=== PATIENT | male | born 1945 | race African-American/Black ===

== ENCOUNTER 2023-12-29 09:20 | Observation (INO) | payer OTHER ==
[2023-12-29] MEDS ORDERED: TETRACAINE 0.5% OPHTH SOLN 2 ML BOTTLE ONE (09:38)
[2023-12-29] MEDS ORDERED: FLUORESCEIN NA 1 EA STRIP ONE (09:38)
[2023-12-29] MEDS ORDERED: FLUORESCEIN NA 1 EA STRIP OS ONE (09:42)
[2023-12-29 10:51] LABS: HEMATOCRIT 30.6 % (35.4-49); HEMOGLOBIN 10.4 G/dL (11.7-16.9); MCH 28.1 pg (25.7-33.7); MCHC 33.9 g/dl (32.0-35.9); MEAN CELL VOLUME 82.7 fl (80-96); MEAN PLT VOLUME 7.7 fl (7.5-11.1); PLATELET COUNT 217.4 10^3/uL (134-434); RDW 17.8 % (11.9-15.9); WHITE BLOOD COUNT 2.6 10^3/uL (4.0-10.8)
[2023-12-29 11:20] LABS: BILIRUBIN,TOTAL 0.6 mg/dl (0.2-1); CALCIUM 9.4 mg/dl (8.5-10.1); CREATININE 0.9 mg/dl (0.6-1.3); POTASSIUM 4.5 mmol/L (3.5-5.1); TOT PROT 6.6 g/dl (6.4-8.2)
[2023-12-29 11:32] LABS: ANISOCYTOSIS 1+; TARGET CELLS OCCASIONAL; TEAR DROP CELLS 1+
[2023-12-29 11:33] LABS: OVALOCYTE 1+
[2023-12-29] MEDS ORDERED: AMOX TR/POT CLAV 875MG/125MG TABLETS (FP) PO ONE (14:22)
[2023-12-29] MEDS ORDERED: AMOX TR/POT CLAV 875MG/125MG TABLETS (FP) ONE (14:27)
[2023-12-29 18:01] VITALS: BMI 21.4
[2023-12-29] MEDS: SODIUM CHLORIDE 1 GM TABLET PO SCH (22:23)
[2023-12-29] MEDS: MELATONIN 5 MG TABLETS PO SCH (22:23)
[2023-12-29] MEDS: TAMSULOSIN HCL 0.4 MG CAP PO SCH (22:23)
[2023-12-29] MEDS: SENNOSIDES 8.6MG TABLET (FP) PO SCH (22:23)
[2023-12-29 22:50] VITALS: RESP 18
[2023-12-30] MEDS: SODIUM CHLORIDE 1 GM TABLET PO SCH ×3 (05:42→21:00)
[2023-12-30] MEDS: AMOX TR/POT CLAV 875MG/125MG TABLETS (FP) PO SCH ×2 (08:26→17:35)
[2023-12-30] MEDS: TAMSULOSIN HCL 0.4 MG CAP PO SCH ×2 (08:26→21:00)
[2023-12-30] MEDS: metoPROLOL SUCCINATE 25 MG TAB.SR.24H (FP) PO SCH (09:06)
[2023-12-30] MEDS: ATORVASTATIN CA 40 MG TABLET (FP) PO SCH (09:06)
[2023-12-30] MEDS: ASCORBIC ACID 500 MG TABLET (FP) PO SCH (09:07)
[2023-12-30] MEDS: ASPIRIN COATED 81 MG TABLET.EC PO SCH (09:07)
[2023-12-30] MEDS: CYANOCOBALAMIN 1,000 MCG TABLET (FP) PO SCH (09:07)
[2023-12-30] MEDS: SENNOSIDES 8.6MG TABLET (FP) PO SCH ×2 (09:07→21:00)
[2023-12-30] MEDS: FERROUS SO4 325 MG TABLET (FP) PO SCH (09:07)
[2023-12-30 09:14] LABS: CALCIUM 9.7 mg/dl (8.5-10.1); CREATININE 0.8 mg/dl (0.6-1.3); POTASSIUM 4.9 mmol/L (3.5-5.1)
[2023-12-30 09:24] LABS: BASO % 1.2 % (0-2.0); EOS % 4.5 % (0-4.5); HEMATOCRIT 34.2 % (35.4-49); HEMOGLOBIN 11.7 GM/dL (11.7-16.9); LYMPH % 47.7 % (8-40); MCH 27.8 pg (25.7-33.7); MCHC 34.3 g/dl (32.0-35.9); MEAN PLT VOLUME 7.6 fl (7.5-11.1); MONO % 11.5 % (3.8-10.2); NEUT % 35.1 % (42.8-82.8); PLATELET COUNT 264 10^3/uL (134-434); RBC 4.22 M/mm3 (4.00-5.60); RDW 16.7 % (11.9-15.9); WHITE BLOOD COUNT 2.8 K/mm3 (4.0-10.0)
[2023-12-30] MEDS ORDERED: PATIENT'S OWN MEDICATION (NON-FORMULARY) (Finasteride [Finasteride] 1 MG Tablet) PO SCH (10:00)
[2023-12-30] MEDS: FINASTERIDE 5 MG TABLET (FP) PO SCH (15:16)
[2023-12-30] MEDS: MELATONIN 5 MG TABLETS PO SCH (21:00)
[2023-12-30] MEDS ORDERED: LATANOPROST 0.005% OPHTH SOLN 2.5ML BOTTLE OD SCH (22:00)
[2023-12-31] MEDS: SODIUM CHLORIDE 1 GM TABLET PO SCH ×2 (05:45→15:17)
[2023-12-31] MEDS: AMOX TR/POT CLAV 875MG/125MG TABLETS (FP) PO SCH (08:11)
[2023-12-31] MEDS: TAMSULOSIN HCL 0.4 MG CAP PO SCH (08:11)
[2023-12-31] MEDS: ASCORBIC ACID 500 MG TABLET (FP) PO SCH (09:20)
[2023-12-31] MEDS: metoPROLOL SUCCINATE 25 MG TAB.SR.24H (FP) PO SCH (09:20)
[2023-12-31] MEDS: FERROUS SO4 325 MG TABLET (FP) PO SCH (09:20)
[2023-12-31] MEDS: FINASTERIDE 5 MG TABLET (FP) PO SCH (09:20)
[2023-12-31] MEDS: SENNOSIDES 8.6MG TABLET (FP) PO SCH (09:20)
[2023-12-31] MEDS: ASPIRIN COATED 81 MG TABLET.EC PO SCH (09:20)
[2023-12-31] MEDS: ATORVASTATIN CA 40 MG TABLET (FP) PO SCH (09:21)
[2023-12-31] MEDS: CYANOCOBALAMIN 1,000 MCG TABLET (FP) PO SCH (09:21)
[2023-12-31 14:33] VITALS: BP 128/76; PULSE 86; TEMP 98.7
== END 2023-12-31 15:23 | disposition home or self-care (01) ==
LOC: FER 09:20 → FM/S 15:03
PROVIDERS: ADMIT Internal Medicine
DX: H02.846 Edema of left eye, unspecified eyelid (principal); L03.818 Cellulitis of other sites; F81.89 Other developmental disorders of scholastic skills; I12.9 Hypertensive chronic kidney disease with stage 1 through stage 4 chronic kidney disease, or unspecified chronic kidney disease; N18.9 Chronic kidney disease, unspecified; N40.0 Benign prostatic hyperplasia without lower urinary tract symptoms; E87.1 Hypo-osmolality and hyponatremia; H40.9 Unspecified glaucoma
CPT/HCPCS: 36415; 70486-TC; 80048; 80053; 82436; 83930; 83935; 84133; 84300; 84484; 85025; 85027; 93005; 99285-25; G0378

== ENCOUNTER 2024-06-01 16:03 | Emergency (ER) | payer OTHER ==
[2024-06-01 16:23] VITALS: BP 118/79; PULSE 67; RESP 18; TEMP 98.3; BMI 27.3
[2024-06-01] MEDS ORDERED: LACTULOSE 20 GM/30 ML UDC (FOR ORAL USE ONLY) ONE (16:43)
[2024-06-01] MEDS ORDERED: MAGNESIUM CITRATE 300 ML BOTTLE ONE (16:43)
[2024-06-01] MEDS: LACTULOSE 20 GM/30 ML UDC (FOR ORAL USE ONLY) PO ONE (16:47)
[2024-06-01] MEDS: MAGNESIUM CITRATE 300 ML BOTTLE PO ONE (16:50)
== END 2024-06-01 18:35 | disposition home or self-care (01) ==
LOC: FER 16:03
DX: K59.00 Constipation, unspecified (principal)
CPT/HCPCS: 99283-25

== ENCOUNTER 2024-09-30 09:57 | Emergency (ER) | payer OTHER ==
[2024-09-30 10:05] VITALS: RESP 18; TEMP 98.1; BMI 22.1
[2024-09-30 11:00] LABS: ALBUMIN 4.2 g/dl (3.4-5.0); BILIRUBIN,TOTAL 0.2 mg/dl (0.2-1); CALCIUM 9.6 mg/dl (8.5-10.1); POTASSIUM 4.2 mmol/L (3.5-5.1); TOT PROT 6.6 g/dl (6.4-8.2)
[2024-09-30 13:27] LABS: HEMATOCRIT 29.4 % (35.4-49); HEMOGLOBIN 9.7 G/dL (11.7-16.9); MCH 28.8 pg (25.7-33.7); MCHC 32.9 g/dl (32.0-35.9); MEAN CELL VOLUME 87.8 fl (80-96); PLATELET COUNT 227.1 10^3/uL (134-434); RBC 3.35 10^6/uL (4.00-5.60); RDW 14.9 % (11.9-15.9); WHITE BLOOD COUNT 2.9 10^3/uL (4.0-10.8)
[2024-09-30 14:08] LABS: PLATELET ESTIMATE ADEQUATE
[2024-09-30 14:12] VITALS: BP 109/56; PULSE 65
== END 2024-09-30 14:13 | disposition home or self-care (01) ==
LOC: FER 09:57
DX: S00.01XA Abrasion of scalp, initial encounter (principal); E87.1 Hypo-osmolality and hyponatremia; X58.XXXA Exposure to other specified factors, initial encounter
CPT/HCPCS: 36415; 70450-TC; 72125-TC; 80053; 85027; 93005; 99285-25

== ENCOUNTER 2024-10-05 14:22 | Emergency (ER) | payer OTHER ==
[2024-10-05 14:36] VITALS: RESP 18; TEMP 97.4; BMI 22.1
[2024-10-05 16:17] LABS: HEMOGLOBIN 11.1 G/dL (11.7-16.9); MCH 29.2 pg (25.7-33.7); MCHC 32.8 g/dl (32.0-35.9); MEAN PLT VOLUME 7.6 fl (7.5-11.1); PLATELET COUNT 239.4 10^3/uL (134-434); RBC 3.82 10^6/uL (4.00-5.60); RDW 14.2 % (11.9-15.9)
[2024-10-05 17:17] LABS: ALBUMIN 5.1 g/dl (3.4-5.0); BILIRUBIN,TOTAL 0.3 mg/dl (0.2-1); CALCIUM 10.6 mg/dl (8.5-10.1); CREATININE 0.9 mg/dl (0.6-1.3); POTASSIUM 4.8 mmol/L (3.5-5.1); TOT PROT 8.2 g/dl (6.4-8.2)
[2024-10-05 17:42] VITALS: BP 137/89; PULSE 86
[2024-10-05 19:02] LABS: OVALOCYTE 2+; PLATELET ESTIMATE ADEQUATE; TARGET CELLS 2+
== END 2024-10-05 17:45 | disposition home or self-care (01) ==
LOC: FER 14:22
DX: I10 Essential (primary) hypertension (principal)
CPT/HCPCS: 36415; 80053; 81003; 81015; 84484; 85027; 93005; 99284-25

== ENCOUNTER 2024-10-15 17:29 | Inpatient (IN) | payer OTHER ==
[2024-10-15 18:54] VITALS: BMI 22.1
[2024-10-15 18:58] LABS: HEMATOCRIT 29.6 % (35.4-49); MCH 29.9 pg (25.7-33.7); MCHC 33.7 g/dl (32.0-35.9); MEAN CELL VOLUME 88.5 fl (80-96); MEAN PLT VOLUME 7.9 fl (7.5-11.1); PLATELET COUNT 253.1 10^3/uL (134-434); RBC 3.34 10^6/uL (4.00-5.60); RDW 14.8 % (11.9-15.9)
[2024-10-15 19:12] LABS: ALBUMIN 4.2 g/dl (3.4-5.0); BILIRUBIN,TOTAL 0.2 mg/dl (0.2-1); CALCIUM 9.8 mg/dl (8.5-10.1); POTASSIUM 4.3 mmol/L (3.5-5.1); TOT PROT 6.2 g/dl (6.4-8.2)
[2024-10-15 19:31] LABS: PLATELET ESTIMATE ADEQUATE
[2024-10-15] MEDS: SODIUM CHLORIDE 0.9% 1000 ML INFUS.BAG IV ONE (22:32)
[2024-10-16] MEDS: SODIUM CHLORIDE 1 GM TABLET PO SCH (06:39)
[2024-10-16] MEDS: GABAPENTIN 300 MG CAPSULE PO SCH (06:39)
[2024-10-16] MEDS: metFORMIN HCL 500 MG TABLET (FP) PO SCH (06:39)
[2024-10-16 08:41] LABS: HEMATOCRIT 30.4 % (35.4-49); HEMOGLOBIN 9.9 G/dL (11.7-16.9); MCH 28.6 pg (25.7-33.7); MCHC 32.5 g/dl (32.0-35.9); MEAN CELL VOLUME 87.9 fl (80-96); PLATELET COUNT 255.7 10^3/uL (134-434); RBC 3.46 10^6/uL (4.00-5.60); RDW 14.9 % (11.9-15.9); WHITE BLOOD COUNT 2.9 10^3/uL (4.0-10.8)
[2024-10-16 09:27] LABS: CALCIUM 9.7 mg/dl (8.5-10.1); CREATININE 0.8 mg/dl (0.6-1.3); POTASSIUM 4.4 mmol/L (3.5-5.1)
[2024-10-16] MEDS: SENNOSIDES 8.6MG TABLET (FP) PO SCH (10:19)
[2024-10-16] MEDS: TAMSULOSIN HCL 0.4 MG CAP PO SCH (10:19)
[2024-10-16] MEDS: ASPIRIN COATED 81 MG TABLET.EC PO SCH (10:19)
[2024-10-16] MEDS: metoPROLOL SUCCINATE 25 MG TAB.SR.24H (FP) PO SCH (10:20)
[2024-10-16] MEDS: DULoxetine HCL 30 MG CAPSULE.DR PO SCH (10:20)
[2024-10-16] MEDS: FINASTERIDE 5 MG TABLET (FP) PO SCH (10:20)
[2024-10-16] MEDS: INSULIN ASPART SLIDING SCALE (NOVOLOG) 1 VIAL SQ SCH (11:25)
[2024-10-16 12:29] LABS: PLATELET ESTIMATE ADEQUATE
[2024-10-16] MEDS: ATORVASTATIN CA 40 MG TABLET (FP) PO SCH (21:08)
[2024-10-17 10:30] LABS: ALBUMIN 4.3 g/dl (3.4-5.0); BILIRUBIN,TOTAL 0.3 mg/dl (0.2-1); CREATININE 0.9 mg/dl (0.6-1.3); POTASSIUM 4.7 mmol/L (3.5-5.1); TOT PROT 6.9 g/dl (6.4-8.2)
[2024-10-17 10:59] LABS: BASO % 1.3 % (0-2.0); HEMATOCRIT 30.7 % (35.4-49); HEMOGLOBIN 10.3 GM/dL (11.7-16.9); LYMPH % 42.2 % (8-40); MCH 28.7 pg (25.7-33.7); MCHC 33.7 g/dl (32.0-35.9); MEAN CELL VOLUME 85.2 fl (80-96); MEAN PLT VOLUME 7.7 fl (7.5-11.1); MONO % 13.2 % (3.8-10.2); NEUT % 35.3 % (42.8-82.8); PLATELET COUNT 271 10^3/uL (134-434); RDW 13.8 % (11.9-15.9); WHITE BLOOD COUNT 3.4 K/mm3 (4.0-10.0)
[2024-10-17] MEDS: ENOXAPARIN NA (PORCINE) 40 MG/0.4 ML DISP.SYRIN SQ SCH (11:23)
[2024-10-17] MEDS: amLODIPine BESYLATE 2.5 MG TABLET (FP) PO ONE (16:05)
[2024-10-18 08:36] LABS: HEMATOCRIT 33.3 % (35.4-49); MCH 28.8 pg (25.7-33.7); MCHC 32.9 g/dl (32.0-35.9); MEAN CELL VOLUME 87.5 fl (80-96); MEAN PLT VOLUME 7.9 fl (7.5-11.1); PLATELET COUNT 260.2 10^3/uL (134-434); RBC 3.81 10^6/uL (4.00-5.60); RDW 14.6 % (11.9-15.9); WHITE BLOOD COUNT 3.9 10^3/uL (4.0-10.8)
[2024-10-18 09:44] LABS: CALCIUM 9.7 mg/dl (8.5-10.1); CREATININE 0.9 mg/dl (0.6-1.3); POTASSIUM 4.6 mmol/L (3.5-5.1)
[2024-10-18] MEDS: amLODIPine BESYLATE 5 MG TABLET (FP) PO SCH (11:37)
[2024-10-18] MEDS: PHENYTOIN 100 MG/4 ML U-D CUP PO SCH (14:56)
[2024-10-19] MEDS: amLODIPine BESYLATE 2.5 MG TABLET (FP) PO SCH (09:08)
[2024-10-20 11:21] VITALS: RESP 18
[2024-10-21 14:13] VITALS: BP 124/77; PULSE 65; TEMP 98.1
== END 2024-10-21 16:45 | DRG 918 ==
LOC: FER 17:29 → FM/S 23:23 → OBSVTOIN 10-16 12:59
PROVIDERS: ADMIT Internal Medicine
DX: T42.0X1A Poisoning by hydantoin derivatives, accidental (unintentional), initial encounter (principal); G40.909 Epilepsy, unspecified, not intractable, without status epilepticus; F03.90 Unspecified dementia, unspecified severity, without behavioral disturbance, psychotic disturbance, mood disturbance, and anxiety; E11.9 Type 2 diabetes mellitus without complications; D64.9 Anemia, unspecified; N40.0 Benign prostatic hyperplasia without lower urinary tract symptoms; R41.0 Disorientation, unspecified; R53.83 Other fatigue; R53.1 Weakness; M48.00 Spinal stenosis, site unspecified; I12.9 Hypertensive chronic kidney disease with stage 1 through stage 4 chronic kidney disease, or unspecified chronic kidney disease; N18.9 Chronic kidney disease, unspecified; E78.5 Hyperlipidemia, unspecified; H40.9 Unspecified glaucoma; R29.6 Repeated falls; R27.0 Ataxia, unspecified; Y92.89 Other specified places as the place of occurrence of the external cause
CPT/HCPCS: 0241U-QW; 36415; 70450-TC; 71045-TC-FY; 80048; 80053; 80185; 81003; 81015; 82962; 84484; 85025; 85027; 87086; 87635; 93005; 97116-GP; 97162-GP; 99285-25; G0378

== ENCOUNTER 2024-12-04 12:38 | Emergency (ER) | payer OTHER ==
[2024-12-04 13:38] VITALS: BP 143/86; PULSE 73; RESP 18; TEMP 97.3; BMI 22.1
[2024-12-04] MEDS ORDERED: LIDOCAINE HCL 2% (20ML MULTI-DOSE VIAL) ONE (16:32)
== END 2024-12-04 17:45 | disposition home or self-care (01) ==
LOC: FER 12:38
DX: H61.121 Hematoma of pinna, right ear (principal); H92.01 Otalgia, right ear
CPT/HCPCS: 99283-25

== ENCOUNTER 2024-12-06 11:20 | Emergency (ER) | payer OTHER ==
[2024-12-06 11:29] VITALS: TEMP 98.5; BMI 22.1
[2024-12-06 12:38] VITALS: BP 120/100; PULSE 90; RESP 15
[2024-12-06] MEDS ORDERED: DIPHTH,PERTUSS(ACELL),TET 0.5 ML DISP.SYRIN IM ONE (13:11)
== END 2024-12-06 13:08 | disposition home or self-care (01) ==
LOC: FER 11:20
DX: H61.121 Hematoma of pinna, right ear (principal); Z48.01 Encounter for change or removal of surgical wound dressing
CPT/HCPCS: 82962; 99283-25

== ENCOUNTER 2025-01-20 11:16 | Inpatient (IN) | payer OTHER ==
[2025-01-20 12:36] LABS: HEMATOCRIT 31.2 % (35.4-49); HEMOGLOBIN 10.6 G/dL (11.7-16.9); MCH 30.3 pg (25.7-33.7); MCHC 33.8 g/dl (32.0-35.9); MEAN CELL VOLUME 89.7 fl (80-96); RBC 3.48 10^6/uL (4.00-5.60); RDW 15.3 % (11.9-15.9); WHITE BLOOD COUNT 2.6 10^3/uL (4.0-10.8)
[2025-01-20 12:38] LABS: INR 1.07 (0.83-1.09); PROTHROMBIN TIME (PATIENT) 12.2 SEC (9.7-13.0)
[2025-01-20 12:41] LABS: ACTIVATED PTT 38.7 SECONDS (25.2-36.5)
[2025-01-20 12:47] LABS: ALBUMIN 4.3 g/dl (3.4-5.0); ALK PHOS 170 U/L (45-117); ANION GAP 6 mmol/L (4-13); BILIRUBIN,TOTAL 0.2 mg/dl (0.2-1); CALCIUM 10.2 mg/dl (8.5-10.1); CHLORIDE 94 mmol/L (98-107); CO2 31 mmol/L (21-32); CREATININE 0.7 mg/dl (0.6-1.3); GLUCOSE,RANDOM 96 mg/dl (74-106); POTASSIUM 4.2 mmol/L (3.5-5.1); SGOT/AST 16 U/L (15-37); SGPT/ALT 15 U/L (7-52); SODIUM 131 mmol/L (136-145); TOT PROT 6.9 g/dl (6.4-8.2)
[2025-01-20 13:00] LABS: PLATELET ESTIMATE ADEQUATE
[2025-01-20] MEDS: INSULIN ASPART SLIDING SCALE (NOVOLOG) 1 VIAL SQ SCH (19:26)
[2025-01-20] MEDS: DEXTROSE 5%-NORMAL SALINE 1,000 ML IV SCH (21:30)
[2025-01-20] MEDS: TAMSULOSIN HCL 0.4 MG CAP PO SCH (21:45)
[2025-01-20] MEDS: PHENYTOIN 100 MG/4 ML U-D CUP PO SCH (21:45)
[2025-01-20] MEDS: MUPIROCIN 2% TOPICAL OINTMENT FOR DECOLONIZATION NS SCH (21:45)
[2025-01-20] MEDS: POLYETHYLENE GLYCOL (HEALTHYLAX) 3350 17 GM PACKET PO SCH (21:45)
[2025-01-20] MEDS: GABAPENTIN 300 MG CAPSULE PO SCH (21:46)
[2025-01-20] MEDS: CHLORHEXIDINE GLUCONATE 4% CLEANSER FOR DECOLONIZATION TP SCH (21:46)
[2025-01-20] MEDS: SENNOSIDES 8.6MG TABLET (FP) PO SCH (21:46)
[2025-01-20] MEDS: MELATONIN 5 MG TABLETS PO SCH (21:46)
[2025-01-21 06:54] LABS: BASO % 1.2 % (0-2.0); HEMATOCRIT 26.9 % (35.4-49); HEMOGLOBIN 8.9 GM/dL (11.7-16.9); MCH 28.7 pg (25.7-33.7); MEAN PLT VOLUME 7.4 fl (7.5-11.1); MONO % 13.6 % (3.8-10.2); NEUT % 55.2 % (42.8-82.8); PLATELET COUNT 327 10^3/uL (134-434); RBC 3.09 M/mm3 (4.00-5.60); RDW 14.1 % (11.9-15.9)
[2025-01-21 07:15] LABS: POTASSIUM 4.4 mmol/L (3.5-5.1)
[2025-01-21 07:19] LABS: CALCIUM 9.1 mg/dL (8.5-10.1)
[2025-01-21 07:20] LABS: ALBUMIN 3.2 g/dl (3.4-5.0); BLOOD UREA NITROGEN 20.1 mg/dL (7-18); MAGNESIUM 1.2 mg/dL (1.8-2.4)
[2025-01-21 07:23] LABS: CREATININE 0.8 mg/dL (0.55-1.3); PHOSPHOROUS 2.4 mg/dL (2.5-4.9)
[2025-01-21 07:24] LABS: BILIRUBIN,TOTAL 0.2 mg/dL (0.2-1); TOT PROT 6.2 g/dl (6.4-8.2)
[2025-01-21] MEDS: DULoxetine HCL 30 MG CAPSULE.DR PO SCH (09:08)
[2025-01-21] MEDS: MAGNESIUM 2GM/50ML STERILE WATER IVPB IVPB ONE (09:08)
[2025-01-21] MEDS: FINASTERIDE 5 MG TABLET (FP) PO SCH (09:09)
[2025-01-21] MEDS: amLODIPine BESYLATE 2.5 MG TABLET (FP) PO ONE (09:12)
[2025-01-21] MEDS: SODIUM PHOSPHATE - 15 MM in SODIUM CHLORIDE 250 ML IVPB ONE (10:19)
[2025-01-21 10:25] LABS: INR 1.13 (0.83-1.09); PROTHROMBIN TIME (PATIENT) 12.3 SEC (9.7-13.0)
[2025-01-21 10:28] LABS: ACTIVATED PTT 35.3 SECONDS (25.2-36.5)
[2025-01-22] MEDS ORDERED: ATROPINE SULFATE 1 MG/10 ML DISP.SYRIN IVPUSH PRN (05:49)
[2025-01-22 07:50] LABS: PH,URINE 5.5 (5.0-8.0); URINE APPEARANCE CLEAR; URINE BILIRUBIN NEGATIVE (NEGATIVE); URINE COLOR YELLOW; URINE GLUCOSE (UA) NEGATIVE (NEGATIVE); URINE KETONE NEGATIVE (NEGATIVE); URINE NITRITE NEGATIVE (NEGATIVE); URINE PROTEIN TRACE (NEGATIVE); URINE UROBILINOGEN 0.2 mg/dL (0.2-1.0)
[2025-01-22 07:51] LABS: URINE LEUK ESTERASE NEGATIVE (NEGATIVE)
[2025-01-22 08:01] LABS: BASO % 1.3 % (0-2.0); EOS % 8.5 % (0-4.5); HEMATOCRIT 26.4 % (35.4-49); MCH 29.4 pg (25.7-33.7); MEAN CELL VOLUME 86.5 fl (80-96); MEAN PLT VOLUME 7.3 fl (7.5-11.1); NEUT % 40.2 % (42.8-82.8); PLATELET COUNT 274 10^3/uL (134-434); RBC 3.05 M/mm3 (4.00-5.60); RDW 14.1 % (11.9-15.9); WHITE BLOOD COUNT 2.3 K/mm3 (4.0-10.0)
[2025-01-22 08:17] LABS: POTASSIUM 3.9 mmol/L (3.5-5.1)
[2025-01-22 08:19] LABS: BLOOD UREA NITROGEN 15.3 mg/dL (7-18); CALCIUM 9.1 mg/dL (8.5-10.1)
[2025-01-22 08:22] LABS: CREATININE 0.7 mg/dL (0.55-1.3)
[2025-01-22 08:24] LABS: BILIRUBIN,TOTAL 0.2 mg/dL (0.2-1); TOT PROT 6.1 g/dl (6.4-8.2)
[2025-01-22] MEDS: INSULIN ASPART SLIDING SCALE (NOVOLOG) 1 VIAL SQ SCH (18:00)
[2025-01-23 06:37] LABS: BASO % 0.2 % (0-2.0); EOS % 0.4 % (0-4.5); HEMOGLOBIN 9.7 GM/dL (11.7-16.9); LYMPH % 6.2 % (8-40); MCHC 33.4 g/dl (32.0-35.9); MEAN PLT VOLUME 7.1 fl (7.5-11.1); MONO % 7.9 % (3.8-10.2); NEUT % 85.3 % (42.8-82.8); PLATELET COUNT 295 10^3/uL (134-434); RBC 3.33 M/mm3 (4.00-5.60); RDW 13.7 % (11.9-15.9); WHITE BLOOD COUNT 8.5 K/mm3 (4.0-10.0)
[2025-01-23 06:55] LABS: POTASSIUM 4.2 mmol/L (3.5-5.1)
[2025-01-23 06:59] LABS: ALBUMIN 3.2 g/dl (3.4-5.0); CALCIUM 9.3 mg/dL (8.5-10.1)
[2025-01-23 07:00] LABS: BLOOD UREA NITROGEN 10.7 mg/dL (7-18); MAGNESIUM 1.4 mg/dL (1.8-2.4)
[2025-01-23 07:03] LABS: CREATININE 0.7 mg/dL (0.55-1.3); PHOSPHOROUS 2.4 mg/dL (2.5-4.9)
[2025-01-23 07:04] LABS: BILIRUBIN,TOTAL 0.2 mg/dL (0.2-1); TOT PROT 6.6 g/dl (6.4-8.2)
[2025-01-23] MEDS: MAGNESIUM SULFATE IN WATER 2 GM/50 ML IVPB IVPB ONE (08:59)
[2025-01-24 06:46] LABS: POTASSIUM 4.1 mmol/L (3.5-5.1)
[2025-01-24 06:50] LABS: ALBUMIN 3.1 g/dl (3.4-5.0); CALCIUM 9.2 mg/dL (8.5-10.1)
[2025-01-24 06:51] LABS: MAGNESIUM 1.6 mg/dL (1.8-2.4)
[2025-01-24 06:54] LABS: CREATININE 0.6 mg/dL (0.55-1.3); PHOSPHOROUS 2.8 mg/dL (2.5-4.9)
[2025-01-24 06:55] LABS: BILIRUBIN,TOTAL 0.2 mg/dL (0.2-1); TOT PROT 6.4 g/dl (6.4-8.2)
[2025-01-24 07:17] LABS: BASO % 0.3 % (0-2.0); HEMATOCRIT 26.7 % (35.4-49); HEMOGLOBIN 9.2 GM/dL (11.7-16.9); LYMPH % 12.2 % (8-40); MCH 29.4 pg (25.7-33.7); MCHC 34.5 g/dl (32.0-35.9); MEAN CELL VOLUME 85.3 fl (80-96); MEAN PLT VOLUME 7.5 fl (7.5-11.1); MONO % 7.2 % (3.8-10.2); NEUT % 76.3 % (42.8-82.8); PLATELET COUNT 268 10^3/uL (134-434); RBC 3.13 M/mm3 (4.00-5.60); RDW 13.7 % (11.9-15.9); WHITE BLOOD COUNT 6.1 K/mm3 (4.0-10.0)
[2025-01-24] MEDS: amLODIPine BESYLATE 5 MG TABLET (FP) PO SCH (13:08)
[2025-01-24 16:10] VITALS: BMI 25.4
[2025-01-24] MEDS ORDERED: LABETALOL HCL 20 MG/4 ML VIAL IVPUSH ONE (18:20)
[2025-01-24] MEDS: amLODIPine BESYLATE 5 MG TABLET (FP) PO ONE (21:13)
[2025-01-25] MEDS ORDERED: VANCOMYCIN 1,000 MG VIAL (RESTRICTED TO ID ONLY) ONE (07:09)
[2025-01-25] MEDS ORDERED: PROPOFOL 20 ML ONE (07:15)
[2025-01-25] MEDS ORDERED: ROCURONIUM BROMIDE 50 MG/5 ML SYRINGE ONE (07:16)
[2025-01-25] MEDS ORDERED: LIDOCAINE HCL/PF 2% SDV 5ML VIAL ONE (07:16)
[2025-01-25] MEDS ORDERED: LIDOCAINE 1%/EPI 1:100000 (20 ML MULTI DOSE VIAL) ONE (07:18)
[2025-01-25] MEDS: amLODIPine BESYLATE 5 MG TABLET (FP) PO SCH (09:19)
[2025-01-25] MEDS: DEXTROSE 5%-NORMAL SALINE 1,000 ML IV SCH (10:41)
[2025-01-25] MEDS: SODIUM CHLORIDE 1 GM TABLET PO SCH (21:16)
[2025-01-26 08:33] LABS: HEMATOCRIT 31.5 % (35.4-49); HEMOGLOBIN 10.9 GM/dL (11.7-16.9); MCH 29.6 pg (25.7-33.7); MCHC 34.8 g/dl (32.0-35.9); MEAN CELL VOLUME 85.2 fl (80-96); MEAN PLT VOLUME 7.6 fl (7.5-11.1); PLATELET COUNT 301 10^3/uL (134-434); RBC 3.69 M/mm3 (4.00-5.60); RDW 14.1 % (11.9-15.9); WHITE BLOOD COUNT 3.4 K/mm3 (4.0-10.0)
[2025-01-26 08:46] LABS: POTASSIUM 4.3 mmol/L (3.5-5.1)
[2025-01-26 08:54] LABS: BLOOD UREA NITROGEN 15.6 mg/dL (7-18)
[2025-01-26 08:55] LABS: CALCIUM 9.8 mg/dL (8.5-10.1); MAGNESIUM 1.6 mg/dL (1.8-2.4)
[2025-01-26 08:58] LABS: CREATININE 0.7 mg/dL (0.55-1.3); PHOSPHOROUS 2.7 mg/dL (2.5-4.9)
[2025-01-26] MEDS: MAGNESIUM 2GM/50ML STERILE WATER IVPB IVPB ONE (22:53)
[2025-01-27 07:15] LABS: HEMATOCRIT 33.5 % (35.4-49); HEMOGLOBIN 11.2 GM/dL (11.7-16.9); MCH 28.7 pg (25.7-33.7); MCHC 33.4 g/dl (32.0-35.9); MEAN CELL VOLUME 85.9 fl (80-96); MEAN PLT VOLUME 7.1 fl (7.5-11.1); PLATELET COUNT 329 10^3/uL (134-434); WHITE BLOOD COUNT 2.7 K/mm3 (4.0-10.0)
[2025-01-27 07:36] LABS: BLOOD UREA NITROGEN 12.9 mg/dL (7-18)
[2025-01-27 07:38] LABS: CALCIUM 9.6 mg/dL (8.5-10.1)
[2025-01-27 07:39] LABS: CREATININE 0.7 mg/dL (0.55-1.3); MAGNESIUM 1.8 mg/dL (1.8-2.4); PHOSPHOROUS 2.7 mg/dL (2.5-4.9)
[2025-01-27] MEDS: LABETALOL HCL 20 MG/4 ML VIAL IVPUSH ONE (15:10)
[2025-01-27] MEDS: DOXAZOSIN MESYLATE 1 MG TABLET PO SCH (22:30)
[2025-01-28] MEDS: amLODIPine BESYLATE 10 MG TABLET (FP) PO SCH (09:46)
[2025-01-28] MEDS: LABETALOL HCL 20 MG/4 ML VIAL IVPUSH SCH ×2 (15:22→20:44)
[2025-01-28] MEDS ORDERED: levETIRAcetam 500 MG/5 ML INJECTION VIAL IVPB ONE (17:14)
[2025-01-28] MEDS: levETIRAcetam 500 MG/5 ML INJECTION VIAL IVPB ONE (17:23)
[2025-01-28] MEDS ORDERED: PHENYTOIN SODIUM 250 MG/5 ML VIAL IVPB SCH (17:30)
[2025-01-28] MEDS: FOSPHENYTOIN SODIUM 100 MG in SODIUM CHLORIDE 100 ML IVPB SCH (19:43)
[2025-01-28] MEDS: CEFAZOLIN 2 GM/D5W 2 GM/50 ML ML IVPB SCH (21:21)
[2025-01-28] MEDS: MUPIROCIN 2% TOPICAL OINTMENT FOR DECOLONIZATION NS SCH (21:21)
[2025-01-28] MEDS: CHLORHEXIDINE GLUCONATE 4% CLEANSER FOR DECOLONIZATION TP SCH (21:22)
[2025-01-28 21:54] LABS: BASO % 0.5 % (0-2.0); EOS % 1.8 % (0-4.5); HEMATOCRIT 30.8 % (35.4-49); HEMOGLOBIN 10.4 GM/dL (11.7-16.9); LYMPH % 15.9 % (8-40); MCH 28.9 pg (25.7-33.7); MCHC 33.9 g/dl (32.0-35.9); MEAN CELL VOLUME 85.2 fl (80-96); MONO % 14.7 % (3.8-10.2); NEUT % 67.1 % (42.8-82.8); RBC 3.61 M/mm3 (4.00-5.60); WHITE BLOOD COUNT 3.4 K/mm3 (4.0-10.0)
[2025-01-28 22:11] LABS: POTASSIUM 4.9 mmol/L (3.5-5.1)
[2025-01-28 22:14] LABS: ALBUMIN 2.9 g/dl (3.4-5.0); BLOOD UREA NITROGEN 18.9 mg/dL (7-18); MAGNESIUM 1.6 mg/dL (1.8-2.4)
[2025-01-28 22:17] LABS: CREATININE 0.9 mg/dL (0.55-1.3); PHOSPHOROUS 2.8 mg/dL (2.5-4.9)
[2025-01-28 22:18] LABS: BILIRUBIN,TOTAL 0.1 mg/dL (0.2-1); TOT PROT 6.6 g/dl (6.4-8.2)
[2025-01-28 22:20] LABS: MEAN PLT VOLUME 7.1 fl (7.5-11.1); PLATELET COUNT 218 10^3/uL (134-434)
[2025-01-29 07:31] LABS: BASO % 0.8 % (0-2.0); EOS % 3.4 % (0-4.5); HEMATOCRIT 32.4 % (35.4-49); HEMOGLOBIN 10.9 GM/dL (11.7-16.9); LYMPH % 20.6 % (8-40); MCHC 33.8 g/dl (32.0-35.9); MEAN CELL VOLUME 85.7 fl (80-96); MEAN PLT VOLUME 7.5 fl (7.5-11.1); NEUT % 60.2 % (42.8-82.8); PLATELET COUNT 272 10^3/uL (134-434); RBC 3.78 M/mm3 (4.00-5.60); RDW 13.8 % (11.9-15.9); WHITE BLOOD COUNT 2.4 K/mm3 (4.0-10.0)
[2025-01-29 08:31] LABS: POTASSIUM 4.3 mmol/L (3.5-5.1)
[2025-01-29 08:33] LABS: CALCIUM 9.6 mg/dL (8.5-10.1)
[2025-01-29 08:34] LABS: ALBUMIN 3.2 g/dl (3.4-5.0); BLOOD UREA NITROGEN 20.6 mg/dL (7-18)
[2025-01-29 08:35] LABS: MAGNESIUM 1.6 mg/dL (1.8-2.4)
[2025-01-29 08:37] LABS: CREATININE 1.1 mg/dL (0.55-1.3)
[2025-01-29 08:38] LABS: BILIRUBIN,TOTAL 0.2 mg/dL (0.2-1); TOT PROT 7.1 g/dl (6.4-8.2)
[2025-01-29] MEDS: MAGNESIUM 1GM/D5W - 1 GM/100 ML IVPB IVPB ONE (10:37)
[2025-01-29] MEDS ORDERED: ROCURONIUM BROMIDE 50 MG/5 ML SYRINGE ONE (12:01)
[2025-01-29] MEDS: ceFAZolin SODIUM 1 GM VIAL IVPB ONE (13:01)
[2025-01-29] MEDS ORDERED: ePHEDrine SULFATE 50 MG/1 ML AMPULE ONE (13:04)
[2025-01-29] MEDS ORDERED: SUGAMMADEX SODIUM 200 MG/2 ML VIAL ONE (14:14)
[2025-01-29] MEDS ORDERED: ONDANSETRON 4 MG/2 ML VIAL ONE (14:14)
[2025-01-29] MEDS: LORazepam 2 MG/ML SDV VIAL IVPUSH ONE (14:30)
[2025-01-29] MEDS ORDERED: LORazepam 2 MG/ML SDV VIAL ONE (14:31)
[2025-01-29] MEDS: levETIRAcetam 500 MG/5 ML INJECTION VIAL IVPB ONE (15:32)
[2025-01-29] MEDS: NICARDIPINE 25 MG in DEXTROSE 5%-WATER - 240 ML IVPB SCH (23:23)
[2025-01-30] MEDS ORDERED: niCARdipine HCL 25 MG/10 ML AMPUL IVPB ONE (03:45)
[2025-01-30] MEDS: hydrALAZINE HCL 20 MG/ML VIAL IVPUSH SCH (08:33)
[2025-01-30 08:45] LABS: CHLORIDE 93 mmol/L (98-107); SODIUM 125 mmol/L (136-145)
[2025-01-30 08:54] LABS: HEMATOCRIT 32.4 % (35.4-49); HEMOGLOBIN 11.4 GM/dL (11.7-16.9); MCH 29.8 pg (25.7-33.7); MCHC 35.1 g/dl (32.0-35.9); MEAN CELL VOLUME 84.8 fl (80-96); MEAN PLT VOLUME 7.4 fl (7.5-11.1); PLATELET COUNT 221 10^3/uL (134-434); POTASSIUM 8.7 mmol/L (3.5-5.1); RBC 3.82 M/mm3 (4.00-5.60); RDW 13.9 % (11.9-15.9); WHITE BLOOD COUNT 3.8 K/mm3 (4.0-10.0)
[2025-01-30 08:59] LABS: ANION GAP 3 mmol/L (4-13); CO2 29 mmol/L (21-32); GLUCOSE,RANDOM 117 mg/dL (74-106); MAGNESIUM 1.8 mg/dL (1.8-2.4)
[2025-01-30 09:03] LABS: ALK PHOS 225 U/L (45-117); BILIRUBIN,TOTAL 0.2 mg/dL (0.2-1); CREATININE 0.8 mg/dL (0.55-1.3); SGOT/AST 74 U/L (15-37)
[2025-01-30 09:05] LABS: TOT PROT 7.6 g/dl (6.4-8.2)
[2025-01-30 09:12] LABS: BLOOD UREA NITROGEN 15.6 mg/dL (7-18)
[2025-01-30 09:28] LABS: SGPT/ALT 19 U/L (13-61)
[2025-01-30 09:45] LABS: ANISOCYTOSIS 0; HELMET CELLS 0; HOWELL-JOLLY BODIES 0; MACROCYTOSIS 0; OVALOCYTE 0; ROULEAU 0; SICKELED CELLS 0; TARGET CELLS 0; TEAR DROP CELLS 0; TOXIC GRANULATION 0
[2025-01-30] MEDS: levETIRAcetam 500 MG/5 ML INJECTION VIAL IVPB SCH (10:38)
[2025-01-30] MEDS: ENALAPRILAT DIHYDRATE 1.25 MG/1 ML VIAL IVPB SCH (10:46)
[2025-01-30 11:07] LABS: POTASSIUM 4.3 mmol/L (3.5-5.1)
[2025-01-30 11:09] LABS: BLOOD UREA NITROGEN 14.4 mg/dL (7-18)
[2025-01-30 11:13] LABS: CREATININE 0.6 mg/dL (0.55-1.3)
[2025-01-30] MEDS ORDERED: LORazepam 2 MG/ML SDV VIAL ONE (20:28)
[2025-01-30] MEDS: LORazepam 2 MG/ML SDV VIAL IVPUSH PRN (20:49)
[2025-01-31] MEDS ORDERED: RAPID SEQUENCE INTUBATION KIT NR ONE (04:38)
[2025-01-31 07:20] LABS: BASO % 0.8 % (0-2.0); EOS % 5.5 % (0-4.5); HEMATOCRIT 32.6 % (35.4-49); LYMPH % 21.7 % (8-40); MCH 28.8 pg (25.7-33.7); MCHC 33.8 g/dl (32.0-35.9); MEAN CELL VOLUME 85.2 fl (80-96); MEAN PLT VOLUME 7.5 fl (7.5-11.1); MONO % 13.3 % (3.8-10.2); NEUT % 58.7 % (42.8-82.8); PLATELET COUNT 224 10^3/uL (134-434); RBC 3.82 M/mm3 (4.00-5.60); WHITE BLOOD COUNT 2.4 K/mm3 (4.0-10.0)
[2025-01-31 07:40] LABS: CHLORIDE 96 mmol/L (98-107); POTASSIUM 4.4 mmol/L (3.5-5.1); SODIUM 131 mmol/L (136-145)
[2025-01-31 07:47] LABS: ALBUMIN 3.1 g/dl (3.4-5.0); ANION GAP 3 mmol/L (4-13); BLOOD UREA NITROGEN 17.1 mg/dL (7-18); CO2 31 mmol/L (21-32); CREATININE 0.8 mg/dL (0.55-1.3); GLUCOSE,RANDOM 99 mg/dL (74-106); SGPT/ALT 13 U/L (13-61)
[2025-01-31 07:48] LABS: BILIRUBIN,TOTAL < 0.1 mg/dL (0.2-1); TOT PROT 7.1 g/dl (6.4-8.2)
[2025-01-31 07:49] LABS: ALK PHOS 232 U/L (45-117); CALCIUM 9.3 mg/dL (8.5-10.1); MAGNESIUM 1.7 mg/dL (1.8-2.4)
[2025-01-31 07:50] LABS: SGOT/AST 25 U/L (15-37)
[2025-01-31] MEDS: MAGNESIUM 2GM/50ML STERILE WATER IVPB IVPB ONE (10:08)
[2025-01-31] MEDS ORDERED: ATROPINE SULFATE 1 MG/10 ML DISP.SYRIN IVPUSH PRN (12:27)
[2025-01-31] MEDS: SODIUM CHLORIDE 1 GM TABLET PO SCH (13:58)
[2025-01-31] MEDS: INSULIN ASPART SLIDING SCALE (NOVOLOG) 1 VIAL SQ SCH (16:04)
[2025-01-31] MEDS: FOSPHENYTOIN SODIUM 100 MG in SODIUM CHLORIDE 100 ML IVPB SCH (17:31)
[2025-01-31] MEDS: MELATONIN 5 MG TABLETS PO SCH (21:00)
[2025-02-01 07:59] LABS: BASO % 0.5 % (0-2.0); EOS % 2.6 % (0-4.5); HEMATOCRIT 30.5 % (35.4-49); HEMOGLOBIN 10.3 GM/dL (11.7-16.9); LYMPH % 20.5 % (8-40); MCH 28.7 pg (25.7-33.7); MCHC 33.9 g/dl (32.0-35.9); MEAN CELL VOLUME 84.8 fl (80-96); MEAN PLT VOLUME 7.6 fl (7.5-11.1); MONO % 10.9 % (3.8-10.2); NEUT % 65.5 % (42.8-82.8); PLATELET COUNT 200 10^3/uL (134-434); RBC 3.59 M/mm3 (4.00-5.60); RDW 13.8 % (11.9-15.9); WHITE BLOOD COUNT 2.4 K/mm3 (4.0-10.0)
[2025-02-01 08:05] LABS: POTASSIUM 4.5 mmol/L (3.5-5.1)
[2025-02-01 08:12] LABS: BLOOD UREA NITROGEN 17.7 mg/dL (7-18)
[2025-02-01 08:14] LABS: BILIRUBIN,TOTAL 0.1 mg/dL (0.2-1); CALCIUM 9.5 mg/dL (8.5-10.1)
[2025-02-01 08:15] LABS: ALBUMIN 2.9 g/dl (3.4-5.0); CREATININE 0.8 mg/dL (0.55-1.3)
[2025-02-01 08:16] LABS: TOT PROT 6.6 g/dl (6.4-8.2)
[2025-02-01] MEDS: DOXAZOSIN MESYLATE 1 MG TABLET PO SCH (09:36)
[2025-02-01] MEDS: DULoxetine HCL 30 MG CAPSULE.DR PO SCH (09:36)
[2025-02-01] MEDS: PANTOPRAZOLE SODIUM 40 MG VIAL IVPUSH SCH (09:40)
[2025-02-01] MEDS: HEPARIN NA (PORCINE) 5,000 UNITS/ML 1ML VIAL SQ SCH (14:02)
[2025-02-01] MEDS: AMINO ACID 4.25%/D5W/ELECTROLYTES IV SCH (14:03)
[2025-02-01] MEDS: ENALAPRILAT DIHYDRATE 1.25 MG/1 ML VIAL IVPB PRN (16:45)
[2025-02-01] MEDS: ATORVASTATIN CA 40 MG TABLET (FP) PO SCH (21:07)
[2025-02-02 07:19] LABS: BASO % 0.6 % (0-2.0); EOS % 1.2 % (0-4.5); HEMATOCRIT 30.7 % (35.4-49); HEMOGLOBIN 10.2 GM/dL (11.7-16.9); LYMPH % 12.5 % (8-40); MCH 28.2 pg (25.7-33.7); MCHC 33.3 g/dl (32.0-35.9); MEAN CELL VOLUME 84.9 fl (80-96); MEAN PLT VOLUME 8.1 fl (7.5-11.1); MONO % 8.8 % (3.8-10.2); NEUT % 76.9 % (42.8-82.8); PLATELET COUNT 202 10^3/uL (134-434); RBC 3.61 M/mm3 (4.00-5.60); RDW 13.7 % (11.9-15.9); WHITE BLOOD COUNT 4.1 K/mm3 (4.0-10.0)
[2025-02-02 07:50] LABS: POTASSIUM 4.4 mmol/L (3.5-5.1)
[2025-02-02 07:53] LABS: CALCIUM 9.3 mg/dL (8.5-10.1)
[2025-02-02 07:54] LABS: ALBUMIN 2.8 g/dl (3.4-5.0); BLOOD UREA NITROGEN 22.2 mg/dL (7-18)
[2025-02-02 07:55] LABS: MAGNESIUM 2.1 mg/dL (1.8-2.4)
[2025-02-02 07:57] LABS: CREATININE 0.8 mg/dL (0.55-1.3)
[2025-02-02 07:58] LABS: TOT PROT 6.6 g/dl (6.4-8.2)
[2025-02-02 07:59] LABS: BILIRUBIN,TOTAL 0.1 mg/dL (0.2-1)
[2025-02-02] MEDS: amLODIPine BESYLATE 2.5 MG TABLET (FP) PO SCH (09:25)
[2025-02-02] MEDS: FINASTERIDE 5 MG TABLET (FP) PO SCH (09:25)
[2025-02-02] MEDS: levETIRAcetam 500 MG/5 ML INJECTION VIAL IVPB ONE ×2 (10:36)
[2025-02-02] MEDS: FOSPHENYTOIN SODIUM 200 MG in SODIUM CHLORIDE 100 ML IVPB SCH (11:20)
[2025-02-02] MEDS: FOSPHENYTOIN SODIUM 100 MG/2 ML VIAL IVPB SCH (11:23)
[2025-02-02] MEDS ORDERED: SODIUM CHLORIDE 1,000 ML IV STA (14:42)
[2025-02-02] MEDS ORDERED: NOREPINEPHRINE BITARTRATE 4 MG/4 ML ML IV ONE (14:43)
[2025-02-02 15:43] LABS: EPI CELLS 7 /uL (0-25.1); HYALINE CASTS 0 /uL (0-3.1); URINE APPEARANCE TURBID; URINE BACTERIA 506 /uL (0-1359); URINE BILIRUBIN NEGATIVE (NEGATIVE); URINE COLOR YELLOW; URINE GLUCOSE (UA) NEGATIVE (NEGATIVE); URINE KETONE TRACE (NEGATIVE); URINE LEUK ESTERASE 3+ (NEGATIVE); URINE NITRITE NEGATIVE (NEGATIVE); URINE PROTEIN 1+ (NEGATIVE); URINE RBC 94 /uL (0-23.9); URINE UROBILINOGEN 0.2 mg/dL (0.2-1.0); URINE WBC 7541 /uL (0-25.8)
[2025-02-02] MEDS ORDERED: levETIRAcetam 500 MG/5 ML INJECTION VIAL IVPB SCH (22:00)
[2025-02-02] MEDS ORDERED: FOSPHENYTOIN SODIUM 200 MG in SODIUM CHLORIDE 100 ML IVPB SCH (22:00)
[2025-02-02] MEDS: levETIRAcetam 500 MG/5 ML INJECTION VIAL IVPB SCH (23:28)
[2025-02-03] MEDS ORDERED: CALCIUM CHLORIDE 1 GM/10 ML *DISP.SYRIN ONE (04:38)
[2025-02-03] MEDS ORDERED: NOREPINEPHRINE BITARTRATE 4 MG/4 ML ML IV ONE (05:22)
[2025-02-03] MEDS: NOREPINEPHRINE BITARTRATE 4,000 MCG in DEXTROSE 5%-WATER - 496 ML IV SCH (05:30)
[2025-02-03 05:37] LABS: ARTERIAL BLD GAS O2 SATURATION 99.7 % (95-98); ARTERIAL BLOOD GAS BASE EXCESS 2.8 mmol/L (-2-2); ARTERIAL BLOOD GAS PO2 250.1 mmHg (80-100); ARTERIAL BLOOD GAS pH 7.583 (7.350-7.450)
[2025-02-03 05:40] LABS: BASO % 0.5 % (0-2.0); EOS % 0.2 % (0-4.5); HEMATOCRIT 29.3 % (35.4-49); HEMOGLOBIN 9.7 GM/dL (11.7-16.9); MCH 28.2 pg (25.7-33.7); MCHC 33.2 g/dl (32.0-35.9); MEAN CELL VOLUME 85.1 fl (80-96); MONO % 5.3 % (3.8-10.2); PLATELET COUNT 178 10^3/uL (134-434); RBC 3.44 M/mm3 (4.00-5.60); RDW 14.3 % (11.9-15.9); WHITE BLOOD COUNT 5.8 K/mm3 (4.0-10.0)
[2025-02-03] MEDS ORDERED: VASopressin 20 UNITS/ML VIAL IV ONE (05:40)
[2025-02-03 05:47] LABS: INR 3.72 (0.83-1.09); PROTHROMBIN TIME (PATIENT) 40.6 SEC (9.7-13.0)
[2025-02-03 06:13] LABS: LACTIC ACID 3.1 mmol/L (0.4-2.0)
[2025-02-03 06:29] LABS: ALBUMIN 2.4 g/dl (3.4-5.0); BLOOD UREA NITROGEN 31.9 mg/dL (7-18); CALCIUM 10.1 mg/dL (8.5-10.1); CREATININE 1.9 mg/dL (0.55-1.3); POTASSIUM 4.3 mmol/L (3.5-5.1)
[2025-02-03] MEDS: LACTATED RINGERS SOLUTION 1000 ML INFUS.BAG IV ONE (06:30)
[2025-02-03 06:35] LABS: BILIRUBIN,TOTAL 0.2 mg/dL (0.2-1); TOT PROT 5.8 g/dl (6.4-8.2)
[2025-02-03] MEDS: LEVALBUTEROL HCL 0.63 MG/3 ML VIAL.NEB. IH SCH (07:31)
[2025-02-03] MEDS: NOREPINEPHRINE 0.9 % NACL 8 MG/250 ML BAG IVPB SCH (07:45)
[2025-02-03] MEDS: VASopressin 40 UNITS/100 ML BAG IV SCH (07:45)
[2025-02-04 07:29] LABS: HEMATOCRIT 23.9 % (35.4-49); HEMOGLOBIN 8.1 GM/dL (11.7-16.9); MCH 28.5 pg (25.7-33.7); MCHC 33.8 g/dl (32.0-35.9); MEAN CELL VOLUME 84.2 fl (80-96); MEAN PLT VOLUME 7.8 fl (7.5-11.1); PLATELET COUNT 160 10^3/uL (134-434); RBC 2.84 M/mm3 (4.00-5.60); RDW 14.3 % (11.9-15.9); WHITE BLOOD COUNT 12.3 K/mm3 (4.0-10.0)
[2025-02-04 07:49] LABS: POTASSIUM 4.5 mmol/L (3.5-5.1)
[2025-02-04 07:55] LABS: ALBUMIN 2.2 g/dl (3.4-5.0); BLOOD UREA NITROGEN 41.5 mg/dL (7-18); MAGNESIUM 1.8 mg/dL (1.8-2.4)
[2025-02-04 07:58] LABS: CREATININE 1.6 mg/dL (0.55-1.3)
[2025-02-04 07:59] LABS: BILIRUBIN,TOTAL 0.3 mg/dL (0.2-1)
[2025-02-04 08:00] LABS: TOT PROT 5.4 g/dl (6.4-8.2)
[2025-02-04 08:11] LABS: CALCIUM 8.5 mg/dL (8.5-10.1)
[2025-02-04 09:36] LABS: ANISOCYTOSIS 0; MACROCYTOSIS 0; OVALOCYTE 1+
[2025-02-04] MEDS: LACTATED RINGERS SOLUTION 1,000 ML/1,000 ML INFUS.BAG IV SCH (15:18)
[2025-02-05 07:11] LABS: BASO % 0.1 % (0-2.0); EOS % 0.1 % (0-4.5); HEMATOCRIT 22.2 % (35.4-49); HEMOGLOBIN 7.4 GM/dL (11.7-16.9); LYMPH % 6.3 % (8-40); MCH 28.7 pg (25.7-33.7); MCHC 33.6 g/dl (32.0-35.9); MEAN CELL VOLUME 85.6 fl (80-96); MEAN PLT VOLUME 7.7 fl (7.5-11.1); NEUT % 86.5 % (42.8-82.8); PLATELET COUNT 133 10^3/uL (134-434); RBC 2.59 M/mm3 (4.00-5.60); WHITE BLOOD COUNT 10.1 K/mm3 (4.0-10.0)
[2025-02-05 07:29] LABS: POTASSIUM 4.1 mmol/L (3.5-5.1)
[2025-02-05 07:40] LABS: ALBUMIN 2.1 g/dl (3.4-5.0); BLOOD UREA NITROGEN 45.4 mg/dL (7-18); CALCIUM 8.9 mg/dL (8.5-10.1)
[2025-02-05 07:43] LABS: BILIRUBIN,TOTAL 0.2 mg/dL (0.2-1); CREATININE 1.4 mg/dL (0.55-1.3); PHOSPHOROUS 2.6 mg/dL (2.5-4.9)
[2025-02-05 07:44] LABS: TOT PROT 5.4 g/dl (6.4-8.2)
[2025-02-05] MEDS ORDERED: FLUDROCORTISONE ACETATE 0.1 MG TABLET (FP) PO SCH (10:00)
[2025-02-05] MEDS: PIPERACILLIN/TAZOB 4.5 GM 4.5 GM/100 ML BAG IVPB SCH (22:51)
[2025-02-06 07:23] LABS: BASO % 0.2 % (0-2.0); EOS % 0.2 % (0-4.5); HEMATOCRIT 23.1 % (35.4-49); HEMOGLOBIN 7.8 GM/dL (11.7-16.9); LYMPH % 11.5 % (8-40); MCH 28.9 pg (25.7-33.7); MCHC 33.6 g/dl (32.0-35.9); MEAN CELL VOLUME 86.2 fl (80-96); MEAN PLT VOLUME 7.4 fl (7.5-11.1); MONO % 10.9 % (3.8-10.2); NEUT % 77.2 % (42.8-82.8); PLATELET COUNT 170 10^3/uL (134-434); RBC 2.68 M/mm3 (4.00-5.60); RDW 13.8 % (11.9-15.9)
[2025-02-06 07:55] LABS: POTASSIUM 4.1 mmol/L (3.5-5.1)
[2025-02-06 08:14] LABS: ALBUMIN 2.1 g/dl (3.4-5.0); CALCIUM 9.2 mg/dL (8.5-10.1)
[2025-02-06 08:15] LABS: BLOOD UREA NITROGEN 40.7 mg/dL (7-18); MAGNESIUM 2.2 mg/dL (1.8-2.4)
[2025-02-06] MEDS: LACTATED RINGERS SOLUTION 1000 ML INFUS.BAG IV ONE (08:15)
[2025-02-06 08:16] LABS: CREATININE 1.4 mg/dL (0.55-1.3)
[2025-02-06 08:18] LABS: BILIRUBIN,TOTAL 0.6 mg/dL (0.2-1); TOT PROT 5.6 g/dl (6.4-8.2)
[2025-02-06] MEDS ORDERED: SODIUM CHLORIDE 0.45% 1,000 ML IV SCH (10:45)
[2025-02-06 12:47] LABS: PHOSPHOROUS 2.4 mg/dL (2.5-4.9)
[2025-02-06] MEDS: DEXTROSE 5%-WATER - 1,000 ML IV SCH (12:48)
[2025-02-07] MEDS ORDERED: VASopressin 20 UNITS/ML VIAL IV ONE (04:46)
[2025-02-07] MEDS: VASopressin 40 UNITS/100 ML BAG IV SCH (04:53)
[2025-02-07] MEDS: DEXTROSE 5%-WATER - 1,000 ML IV SCH (04:58)
[2025-02-07] MEDS: LACTATED RINGERS SOLUTION 1000 ML INFUS.BAG IV ONE ×2 (05:36→05:57)
[2025-02-07 06:13] LABS: ARTERIAL BLD GAS O2 SATURATION 96.4 % (95-98); ARTERIAL BLOOD GAS BASE EXCESS -0.8 mmol/L (-2-2); ARTERIAL BLOOD GAS PO2 80.9 mmHg (80-100); ARTERIAL BLOOD GAS pH 7.444 (7.350-7.450)
[2025-02-07 06:18] LABS: VENT MODE AC
[2025-02-07 06:19] LABS: VENT RATE 14
[2025-02-07] MEDS: HYDROCORTISONE SOD SUCCINATE 100 MG/2 ML VIAL IVPB SCH (07:00)
[2025-02-07 07:42] LABS: BASO % 0.1 % (0-2.0); EOS % 2.1 % (0-4.5); HEMATOCRIT 22.5 % (35.4-49); HEMOGLOBIN 7.3 GM/dL (11.7-16.9); LYMPH % 11.4 % (8-40); MCH 28.7 pg (25.7-33.7); MCHC 32.7 g/dl (32.0-35.9); MEAN CELL VOLUME 87.7 fl (80-96); MEAN PLT VOLUME 7.4 fl (7.5-11.1); MONO % 2.9 % (3.8-10.2); NEUT % 83.5 % (42.8-82.8); PLATELET COUNT 136 10^3/uL (134-434); RBC 2.56 M/mm3 (4.00-5.60); RDW 14.3 % (11.9-15.9); WHITE BLOOD COUNT 2.5 K/mm3 (4.0-10.0)
[2025-02-07 07:48] LABS: LACTIC ACID 2.3 mmol/L (0.4-2.0)
[2025-02-07 08:37] LABS: CHLORIDE 134 mmol/L (98-107)
[2025-02-07 08:46] LABS: BLOOD UREA NITROGEN 27.4 mg/dL (7-18); CO2 24 mmol/L (21-32); GLUCOSE,RANDOM 77 mg/dL (74-106); MAGNESIUM 1.5 mg/dL (1.8-2.4); TOT PROT 3.7 g/dl (6.4-8.2)
[2025-02-07 08:49] LABS: SGOT/AST 34 U/L (15-37); SGPT/ALT 6 U/L (13-61)
[2025-02-07 08:50] LABS: BILIRUBIN,TOTAL 0.3 mg/dL (0.2-1)
[2025-02-07 09:06] LABS: ALBUMIN 1.3 g/dl (3.4-5.0); ALK PHOS 102 U/L (45-117); ANION GAP 5 mmol/L (4-13); CALCIUM 6.8 mg/dL (8.5-10.1); POTASSIUM 2.6 mmol/L (3.5-5.1); SODIUM 162 mmol/L (136-145)
[2025-02-07] MEDS: KCL 20 MEQ PREMIX BAG 20 MEQ/100 ML INFUS.BAG IVPB SCH (12:23)
[2025-02-07 17:39] LABS: POTASSIUM 5.5 mmol/L (3.5-5.1)
[2025-02-07 17:43] LABS: BLOOD UREA NITROGEN 38.1 mg/dL (7-18)
[2025-02-07 17:46] LABS: CREATININE 1.9 mg/dL (0.55-1.3)
[2025-02-07 17:48] LABS: ALBUMIN 1.8 g/dl (3.4-5.0); BILIRUBIN,TOTAL 0.6 mg/dL (0.2-1); CALCIUM 8.8 mg/dL (8.5-10.1); TOT PROT 5.4 g/dl (6.4-8.2)
[2025-02-08 06:11] LABS: HEMATOCRIT 21.1 % (35.4-49); MCH 28.1 pg (25.7-33.7); MCHC 31.9 g/dl (32.0-35.9); MEAN CELL VOLUME 88.2 fl (80-96); MEAN PLT VOLUME 8.3 fl (7.5-11.1); PLATELET COUNT 151 10^3/uL (134-434); RBC 2.39 M/mm3 (4.00-5.60); RDW 14.3 % (11.9-15.9); WHITE BLOOD COUNT 20.5 K/mm3 (4.0-10.0)
[2025-02-08 06:29] LABS: HEMOGLOBIN 6.7 GM/dL (11.7-16.9); POTASSIUM 5.4 mmol/L (3.5-5.1)
[2025-02-08 06:31] LABS: CALCIUM 8.4 mg/dL (8.5-10.1)
[2025-02-08 06:32] LABS: ALBUMIN 1.6 g/dl (3.4-5.0); BLOOD UREA NITROGEN 39.2 mg/dL (7-18)
[2025-02-08 06:35] LABS: CREATININE 1.8 mg/dL (0.55-1.3)
[2025-02-08 06:37] LABS: BILIRUBIN,TOTAL 0.4 mg/dL (0.2-1); TOT PROT 5.1 g/dl (6.4-8.2)
[2025-02-08 09:37] LABS: OVALOCYTE 1+; TARGET CELLS 1+
[2025-02-08] MEDS: PIPERACILLIN/TAZOB 4.5 GM 4.5 GM in DEXTROSE 5%-WATER 100 ML IVPB SCH ×2 (16:49→19:33)
[2025-02-08 20:12] LABS: BASO % 0.1 % (0-2.0); HEMATOCRIT 22.2 % (35.4-49); HEMOGLOBIN 7.1 GM/dL (11.7-16.9); MCH 27.7 pg (25.7-33.7); MEAN CELL VOLUME 86.5 fl (80-96); MEAN PLT VOLUME 8.3 fl (7.5-11.1); NEUT % 92.9 % (42.8-82.8); PLATELET COUNT 132 10^3/uL (134-434); RBC 2.56 M/mm3 (4.00-5.60); RDW 14.6 % (11.9-15.9); WHITE BLOOD COUNT 17.2 K/mm3 (4.0-10.0)
[2025-02-08 20:33] LABS: POTASSIUM 4.9 mmol/L (3.5-5.1)
[2025-02-08 20:38] LABS: CALCIUM 7.8 mg/dL (8.5-10.1)
[2025-02-08 20:39] LABS: ALBUMIN 1.5 g/dl (3.4-5.0); BLOOD UREA NITROGEN 46.4 mg/dL (7-18)
[2025-02-08 20:41] LABS: CREATININE 1.7 mg/dL (0.55-1.3)
[2025-02-08 20:43] LABS: BILIRUBIN,TOTAL 0.5 mg/dL (0.2-1)
[2025-02-08 20:48] LABS: INR 2.56 (0.83-1.09); PROTHROMBIN TIME (PATIENT) 27.9 SEC (9.7-13.0)
[2025-02-08 21:03] LABS: ANISOCYTOSIS 1+; MACROCYTOSIS 0; TARGET CELLS 1+
[2025-02-09 07:07] LABS: HEMOGLOBIN 7.2 GM/dL (11.7-16.9); MCH 28.2 pg (25.7-33.7); MCHC 32.7 g/dl (32.0-35.9); MEAN CELL VOLUME 86.4 fl (80-96); MEAN PLT VOLUME 9.2 fl (7.5-11.1); PLATELET COUNT 136 10^3/uL (134-434); RBC 2.55 M/mm3 (4.00-5.60); RDW 14.8 % (11.9-15.9); WHITE BLOOD COUNT 19.2 K/mm3 (4.0-10.0)
[2025-02-09 07:34] LABS: POTASSIUM 4.8 mmol/L (3.5-5.1)
[2025-02-09 07:36] LABS: CALCIUM 7.9 mg/dL (8.5-10.1)
[2025-02-09 07:37] LABS: ALBUMIN 1.6 g/dl (3.4-5.0); BLOOD UREA NITROGEN 51.9 mg/dL (7-18)
[2025-02-09 07:40] LABS: CREATININE 1.7 mg/dL (0.55-1.3); PHOSPHOROUS 3.8 mg/dL (2.5-4.9)
[2025-02-09 07:41] LABS: BILIRUBIN,TOTAL 0.4 mg/dL (0.2-1)
[2025-02-09 07:42] LABS: TOT PROT 5.2 g/dl (6.4-8.2)
[2025-02-09 10:31] LABS: ANISOCYTOSIS 1+; MACROCYTOSIS 1+; ROULEAU 0
[2025-02-10 07:35] LABS: HEMATOCRIT 21.6 % (35.4-49); HEMOGLOBIN 7.3 GM/dL (11.7-16.9); MCH 28.7 pg (25.7-33.7); MCHC 33.6 g/dl (32.0-35.9); MEAN CELL VOLUME 85.2 fl (80-96); MEAN PLT VOLUME 8.9 fl (7.5-11.1); PLATELET COUNT 128 10^3/uL (134-434); RBC 2.53 M/mm3 (4.00-5.60); RDW 14.9 % (11.9-15.9); WHITE BLOOD COUNT 18.3 K/mm3 (4.0-10.0)
[2025-02-10 07:46] LABS: ALBUMIN 1.6 g/dl (3.4-5.0); BLOOD UREA NITROGEN 59.4 mg/dL (7-18); CALCIUM 8.2 mg/dL (8.5-10.1); MAGNESIUM 2.2 mg/dL (1.8-2.4)
[2025-02-10 07:49] LABS: CREATININE 1.7 mg/dL (0.55-1.3); PHOSPHOROUS 3.5 mg/dL (2.5-4.9)
[2025-02-10 07:51] LABS: BILIRUBIN,TOTAL 0.3 mg/dL (0.2-1); TOT PROT 5.2 g/dl (6.4-8.2)
[2025-02-10] MEDS: FUROSEMIDE 40 MG/4 ML INJECTABLE VIAL IVPUSH ONE (09:41)
[2025-02-10] MEDS ORDERED: FUROSEMIDE 40 MG/4 ML INJECTABLE VIAL IVPUSH ONE (10:00)
[2025-02-11 07:36] LABS: HEMATOCRIT 22.7 % (35.4-49); HEMOGLOBIN 7.4 GM/dL (11.7-16.9); MCH 27.9 pg (25.7-33.7); MCHC 32.5 g/dl (32.0-35.9); MEAN CELL VOLUME 85.7 fl (80-96); MEAN PLT VOLUME 9.1 fl (7.5-11.1); PLATELET COUNT 133 10^3/uL (134-434); RBC 2.65 M/mm3 (4.00-5.60); RDW 14.4 % (11.9-15.9); WHITE BLOOD COUNT 13.6 K/mm3 (4.0-10.0)
[2025-02-11 07:41] LABS: POTASSIUM 3.7 mmol/L (3.5-5.1)
[2025-02-11 07:45] LABS: ALBUMIN 1.5 g/dl (3.4-5.0); BLOOD UREA NITROGEN 63.2 mg/dL (7-18); CALCIUM 8.3 mg/dL (8.5-10.1)
[2025-02-11 07:47] LABS: CREATININE 1.7 mg/dL (0.55-1.3)
[2025-02-11 07:48] LABS: PHOSPHOROUS 3.8 mg/dL (2.5-4.9)
[2025-02-11 07:50] LABS: BILIRUBIN,TOTAL 0.3 mg/dL (0.2-1); TOT PROT 5.1 g/dl (6.4-8.2)
[2025-02-11] MEDS ORDERED: INSULIN ASPART SLIDING SCALE (NOVOLOG) 1 VIAL SQ ONE (10:25)
[2025-02-13 06:48] LABS: POTASSIUM 3.4 mmol/L (3.5-5.1)
[2025-02-13 06:52] LABS: HEMATOCRIT 26.7 % (35.4-49); HEMOGLOBIN 8.8 GM/dL (11.7-16.9); MCHC 32.9 g/dl (32.0-35.9); MEAN CELL VOLUME 85.2 fl (80-96); MEAN PLT VOLUME 9.5 fl (7.5-11.1); PLATELET COUNT 228 10^3/uL (134-434); RBC 3.13 M/mm3 (4.00-5.60); RDW 14.2 % (11.9-15.9); WHITE BLOOD COUNT 8.3 K/mm3 (4.0-10.0)
[2025-02-13 06:54] LABS: BLOOD UREA NITROGEN 70.7 mg/dL (7-18); CALCIUM 8.6 mg/dL (8.5-10.1); MAGNESIUM 2.5 mg/dL (1.8-2.4)
[2025-02-13 06:57] LABS: CREATININE 1.5 mg/dL (0.55-1.3); PHOSPHOROUS 3.5 mg/dL (2.5-4.9)
[2025-02-13] MEDS: KCL 20 MEQ PREMIX BAG 20 MEQ/100 ML INFUS.BAG IVPB SCH (09:03)
[2025-02-14 07:15] LABS: HEMATOCRIT 26.2 % (35.4-49); HEMOGLOBIN 8.7 GM/dL (11.7-16.9); MCH 28.6 pg (25.7-33.7); MCHC 33.3 g/dl (32.0-35.9); MEAN CELL VOLUME 85.8 fl (80-96); MEAN PLT VOLUME 8.9 fl (7.5-11.1); PLATELET COUNT 254 10^3/uL (134-434); RBC 3.06 M/mm3 (4.00-5.60); RDW 14.4 % (11.9-15.9); WHITE BLOOD COUNT 9.7 K/mm3 (4.0-10.0)
[2025-02-14 07:40] LABS: POTASSIUM 3.9 mmol/L (3.5-5.1)
[2025-02-14 07:42] LABS: CALCIUM 8.6 mg/dL (8.5-10.1)
[2025-02-14 07:43] LABS: BLOOD UREA NITROGEN 65.8 mg/dL (7-18); MAGNESIUM 2.7 mg/dL (1.8-2.4)
[2025-02-14 07:46] LABS: CREATININE 1.5 mg/dL (0.55-1.3); PHOSPHOROUS 3.5 mg/dL (2.5-4.9)
[2025-02-15 06:40] LABS: HEMATOCRIT 26.6 % (35.4-49); HEMOGLOBIN 8.5 GM/dL (11.7-16.9); MCH 27.8 pg (25.7-33.7); MCHC 31.9 g/dl (32.0-35.9); MEAN CELL VOLUME 87.2 fl (80-96); MEAN PLT VOLUME 9.3 fl (7.5-11.1); PLATELET COUNT 266 10^3/uL (134-434); RBC 3.05 M/mm3 (4.00-5.60); RDW 14.2 % (11.9-15.9); WHITE BLOOD COUNT 10.1 K/mm3 (4.0-10.0)
[2025-02-15 06:59] LABS: CHLORIDE 127 mmol/L (98-107); POTASSIUM 3.9 mmol/L (3.5-5.1)
[2025-02-15 07:01] LABS: CALCIUM 8.4 mg/dL (8.5-10.1)
[2025-02-15 07:02] LABS: ALBUMIN 1.4 g/dl (3.4-5.0); BLOOD UREA NITROGEN 68.5 mg/dL (7-18); CO2 31 mmol/L (21-32); GLUCOSE,RANDOM 336 mg/dL (74-106); MAGNESIUM 2.7 mg/dL (1.8-2.4)
[2025-02-15 07:05] LABS: CREATININE 1.4 mg/dL (0.55-1.3); PHOSPHOROUS 2.9 mg/dL (2.5-4.9); SGOT/AST 220 U/L (15-37); SGPT/ALT 89 U/L (13-61)
[2025-02-15 07:06] LABS: BILIRUBIN,TOTAL 0.2 mg/dL (0.2-1)
[2025-02-15 07:07] LABS: TOT PROT 5.2 g/dl (6.4-8.2)
[2025-02-15 07:10] LABS: ALK PHOS 160 U/L (45-117); ANION GAP 4 mmol/L (4-13); SODIUM 161 mmol/L (136-145)
[2025-02-16 06:53] LABS: CHLORIDE 129 mmol/L (98-107)
[2025-02-16 06:55] LABS: ALBUMIN 1.4 g/dl (3.4-5.0); BLOOD UREA NITROGEN 72.2 mg/dL (7-18); CALCIUM 8.4 mg/dL (8.5-10.1); CO2 31 mmol/L (21-32); GLUCOSE,RANDOM 253 mg/dL (74-106); MAGNESIUM 2.7 mg/dL (1.8-2.4)
[2025-02-16 06:58] LABS: CREATININE 1.5 mg/dL (0.55-1.3); PHOSPHOROUS 3.7 mg/dL (2.5-4.9); SGPT/ALT 105 U/L (13-61)
[2025-02-16 06:59] LABS: SGOT/AST 205 U/L (15-37)
[2025-02-16 07:00] LABS: BILIRUBIN,TOTAL 0.2 mg/dL (0.2-1); TOT PROT 5.2 g/dl (6.4-8.2)
[2025-02-16 07:01] LABS: ALK PHOS 174 U/L (45-117)
[2025-02-16 07:02] LABS: ANION GAP 4 mmol/L (4-13); SODIUM 163 mmol/L (136-145)
[2025-02-16 08:05] LABS: HEMATOCRIT 27.4 % (40.1-51.0); HEMOGLOBIN 8.3 g/dL (13.7-17.5); MCHC 30.3 g/dl (32.3-36.5); MEAN CELL VOLUME 90.4 fl (79.0-92.2); MEAN PLT VOLUME 11.5 fl (9.4-12.4); PLATELET COUNT # 256 x10^3/uL (163-337); RDW 14.6 % (12.2-16.6)
[2025-02-16] MEDS: HYDROCORTISONE SOD SUCCINATE 100 MG/2 ML VIAL IVPB SCH (21:35)
[2025-02-17 06:05] VITALS: RESP 12; TEMP 96.9
[2025-02-17 06:50] LABS: HEMATOCRIT 25.6 % (40.1-51.0); HEMOGLOBIN 7.8 g/dL (13.7-17.5); MCHC 30.5 g/dl (32.3-36.5); MEAN CELL VOLUME 90.5 fl (79.0-92.2); MEAN PLT VOLUME 11.2 fl (9.4-12.4); PLATELET COUNT # 242 x10^3/uL (163-337); RDW 14.6 % (12.2-16.6)
[2025-02-17 07:09] LABS: CHLORIDE 134 mmol/L (98-107); POTASSIUM 4.2 mmol/L (3.5-5.1)
[2025-02-17 07:12] LABS: ALBUMIN 1.3 g/dl (3.4-5.0); BLOOD UREA NITROGEN 66.1 mg/dL (7-18); CALCIUM 8.2 mg/dL (8.5-10.1); CO2 29 mmol/L (21-32); GLUCOSE,RANDOM 266 mg/dL (74-106); MAGNESIUM 2.6 mg/dL (1.8-2.4)
[2025-02-17 07:15] LABS: ANION GAP 5 mmol/L (4-13); CREATININE 1.5 mg/dL (0.55-1.3); PHOSPHOROUS 3.6 mg/dL (2.5-4.9); SGOT/AST 284 U/L (15-37); SGPT/ALT 145 U/L (13-61); SODIUM 168 mmol/L (136-145)
[2025-02-17 07:17] LABS: BILIRUBIN,TOTAL 0.2 mg/dL (0.2-1)
[2025-02-17 07:22] LABS: ALK PHOS 214 U/L (45-117)
[2025-02-17 09:23] VITALS: BP 106/51; PULSE 44
[2025-02-17] MEDS ORDERED: LORazepam 2 MG/ML SDV VIAL IVPUSH PRN (10:37)
[2025-02-17] MEDS: MORPHINE SULFATE/0.9% NACL/PF 100 MG/100 ML BAG IVPB SCH (10:55)
[2025-02-17] MEDS ORDERED: morphine SULFATE 4 MG/ML VIAL ONE (11:03)
[2025-02-17] MEDS: morphine SULFATE 4 MG/ML VIAL IVPUSH ONE (11:06)
== END 2025-02-17 13:00 | disposition expired | DRG 25 ==
LOC: FER 11:16 → JICU 17:36
PROVIDERS: ADMIT Internal Medicine; ATTEND Internal Medicine Pulmonary Disease
PROC: 00C40ZZ Extirpation of Matter from Intracranial Subdural Space, Open Approach (ICD-10-PCS; principal; 2025-01-29 12:00)
PROC: 05HC33Z Insertion of Infusion Device into Left Basilic Vein, Percutaneous Approach (ICD-10-PCS; 2025-01-30)
PROC: B54NZZA Ultrasonography of Left Upper Extremity Veins, Guidance (ICD-10-PCS; 2025-01-30)
PROC: 0BH17EZ Insertion of Endotracheal Airway into Trachea, Via Natural or Artificial Opening (ICD-10-PCS; 2025-02-03)
PROC: 5A1955Z Respiratory Ventilation, Greater than 96 Consecutive Hours (ICD-10-PCS; 2025-02-03)
PROC: 05H633Z Insertion of Infusion Device into Left Subclavian Vein, Percutaneous Approach (ICD-10-PCS; 2025-02-03)
PROC: B547ZZA Ultrasonography of Left Subclavian Vein, Guidance (ICD-10-PCS; 2025-02-03)
PROC: 4A133B1 Monitoring of Arterial Pressure, Peripheral, Percutaneous Approach (ICD-10-PCS; 2025-02-03)
PROC: 4A133J1 Monitoring of Arterial Pulse, Peripheral, Percutaneous Approach (ICD-10-PCS; 2025-02-03)
PROC: 30233N1 Transfusion of Nonautologous Red Blood Cells into Peripheral Vein, Percutaneous Approach (ICD-10-PCS; 2025-02-08)
PROC: 05HM33Z Insertion of Infusion Device into Right Internal Jugular Vein, Percutaneous Approach (ICD-10-PCS; 2025-02-10)
PROC: B543ZZA Ultrasonography of Right Jugular Veins, Guidance (ICD-10-PCS; 2025-02-10)
PROC: 5A12012 Performance of Cardiac Output, Single, Manual (ICD-10-PCS; 2025-02-15)
DX: I62.01 Nontraumatic acute subdural hemorrhage (principal); A41.89 Other specified sepsis; R65.21 Severe sepsis with septic shock; J96.01 Acute respiratory failure with hypoxia; J18.9 Pneumonia, unspecified organism; E87.1 Hypo-osmolality and hyponatremia; N17.9 Acute kidney failure, unspecified; G81.94 Hemiplegia, unspecified affecting left nondominant side; L03.114 Cellulitis of left upper limb; G93.1 Anoxic brain damage, not elsewhere classified; E87.20 Acidosis, unspecified; E87.0 Hyperosmolality and hypernatremia; G40.909 Epilepsy, unspecified, not intractable, without status epilepticus; E78.5 Hyperlipidemia, unspecified; E11.9 Type 2 diabetes mellitus without complications; N40.0 Benign prostatic hyperplasia without lower urinary tract symptoms; D64.9 Anemia, unspecified; I12.9 Hypertensive chronic kidney disease with stage 1 through stage 4 chronic kidney disease, or unspecified chronic kidney disease; N18.9 Chronic kidney disease, unspecified; H40.9 Unspecified glaucoma; F79 Unspecified intellectual disabilities; I44.0 Atrioventricular block, first degree; R00.1 Bradycardia, unspecified; R27.0 Ataxia, unspecified; I46.9 Cardiac arrest, cause unspecified
CPT/HCPCS: 31500; 36415; 36430; 36600; 70450-TC; 71045-TC-FY; 74018-TC-FY; 76882-TC-RT-FY; 80048; 80053; 80185; 81003; 82308; 82803; 82962; 83036; 83605; 83735; 83935; 84100; 84484; 85025; 85027; 85384; 85610; 85730; 86850; 86900; 86901; 86922; 87040; 87070; 87086; 87186; 87205; 93005; 93010; 93306-TC; 93971; 94002; 95816; 97163-GP; 99291; C1713; J1644; J2597; J3490; P9058